=== PATIENT | female | born 1940 | race Caucasian/White ===

== ENCOUNTER 2016-10-24 17:41 | Inpatient (IN) | payer MEDICARE, OTHER ==
[~2016-10-24] VITALS: Ht 170.2 cm; Wt 73.2 kg
[2016-10-24] MEDS ORDERED: ASPIRIN 81 MG TABLET CHEW ONE (18:24)
[2016-10-24] MEDS ORDERED: NITROGLYCERIN SINGLE TAB 0.4 MG SL ONE (18:24)
[2016-10-24] MEDS ORDERED: DILTIAZEM 5 MG/ML, 5ML ONE (18:24)
[2016-10-24] MEDS ORDERED: SODIUM CHLORIDE FLUSH 10ML SYR IVF ONE (18:30)
[2016-10-24] MEDS ORDERED: DILTIAZEM 5 MG/ML, 5ML IV ONE (18:30)
[2016-10-24] MEDS ORDERED: PLEASE ENTER ALLERGIES MC SCH ×4 (18:30→18:39)
[2016-10-24] MEDS ORDERED: PLEASE ENTER HEIGHT AND WEIGHT MC SCH (18:30)
[2016-10-24] MEDS ORDERED: SODIUM CHLORIDE 0.9% 1,000ML IVBOLUS ONE (18:30)
[2016-10-24] MEDS: NITROGLYCERIN 0.4 MG BOTTLE (25 TABS) SL PRN ×3 (18:30→18:46)
[2016-10-24] MEDS ORDERED: ASPIRIN 81 MG TABLET CHEW PO ONE (18:30)
[2016-10-24] MEDS ORDERED: DILTIAZEM 125 MG in DEXTROSE 5% 100 ML IV SCH (18:31)
[2016-10-24 19:22] LABS: ASPARTATE AMINO TRANSFERASE 24 U/L (15-37); BLOOD UREA NITROGEN 19 mg/dL (7-18)
[2016-10-24 19:27] LABS: IS PT STATUS REG ER OR PRE ER? YES
[2016-10-24] MEDS ORDERED: HYDR-3240 PO (20:00)
[2016-10-24] MEDS ORDERED: DILT30TA33 PO (20:00)
[2016-10-24] MEDS ORDERED: LISI10TA PO (20:00)
[2016-10-24] MEDS ORDERED: TEMA7.5C PO (20:00)
[2016-10-24] MEDS ORDERED: ATOR80TA75 PO (20:00)
[2016-10-24] MEDS ORDERED: LISI-167 PO (20:00)
[2016-10-24] MEDS ORDERED: OMNIPAQUE 350 MG/ML, 100ML BOTTLE ONE (20:31)
[2016-10-24] MEDS ORDERED: FUROSEMIDE 20 MG/2 ML IV ONE (21:30)
[2016-10-24] MEDS ORDERED: NITROGLYCERIN 0.4 MG BOTTLE (25 TABS) SL PRN (22:00)
[2016-10-24] MEDS ORDERED: NITROGLYCERIN 0.4 MG/SPRAY SL PRN (22:00)
[2016-10-24] MEDS ORDERED: DILTIAZEM 125 MG in SODIUM CHLORIDE 0.9% 100 ML IV SCH (22:00)
[2016-10-24] MEDS ORDERED: MAGNESIUM SULFATE PMX 2GM/50ML 50 ML IV ONE (22:00)
[2016-10-24] MEDS ORDERED: BISACODYL 10 MG SUPP PR PRN (22:00)
[2016-10-24] MEDS ORDERED: DOCUSATE 100 MG CAPSULE PO PRN (22:00)
[2016-10-24] MEDS ORDERED: HYDROcodone/APAP 5/325 TABLET PO PRN (22:00)
[2016-10-24] MEDS ORDERED: TEMAZEPAM 15 MG CAPSULE PO PRN (22:00)
[2016-10-24] MEDS ORDERED: POLYETHYLENE GLYCOL 17 GM PACKET PO PRN (22:00)
[2016-10-24] MEDS ORDERED: POTASSIUM CHLORIDE 20 MEQ TAB.ER.PRT PO ONE (22:00)
[2016-10-24] MEDS ORDERED: ACETAMINOPHEN 325 MG TABLET PO PRN (22:00)
[2016-10-24 22:55] VITALS: BP 139/87
[2016-10-24] MEDS ORDERED: HEPARIN 25,000 UNITS/500ML PMX 500 ML IV PRN ×2 (23:00→23:45)
[2016-10-24] MEDS ORDERED: HEPARIN 5,000 UNITS/ML, 1ML IV ONE ×2 (23:00→23:45)
[2016-10-24] MEDS ORDERED: HEPARIN 5,000 UNITS/ML, 1ML IV PRN ×2 (23:00→23:45)
[2016-10-24] MEDS ORDERED: TEMAZEPAM MC SCH (23:00)
[2016-10-24] MEDS ORDERED: TEMAZEPAM 15 MG CAPSULE ONE (23:13)
[2016-10-24] MEDS: TEMAZEPAM 15 MG CAPSULE PO PRN (23:34)
[2016-10-25 01:12] VITALS: BP 112/77
[2016-10-25] MEDS ORDERED: ALBUTEROL SULFATE 2.5 MG/3 ML NPPB PRN (01:30)
[2016-10-25 06:37] LABS: BLOOD UREA NITROGEN 16 mg/dL (7-18)
[2016-10-25 06:45] LABS: IS PT STATUS REG ER OR PRE ER? NO
[2016-10-25 06:46] LABS: ASPARTATE AMINO TRANSFERASE 21 U/L (15-37)
[2016-10-25 06:55] VITALS: BP 141/89
[2016-10-25] MEDS: LISINOPRIL 10 MG TABLET PO SCH (08:15)
[2016-10-25] MEDS ORDERED: REGADENOSON 0.4 MG/5 ML SYRINGE ONE (09:26)
[2016-10-25] MEDS: FUROSEMIDE 20 MG/2 ML IV SCH ×2 (12:05→17:59)
[2016-10-25 12:33] LABS: IS PT STATUS REG ER OR PRE ER? NO
[2016-10-25 14:13] VITALS: BP 128/78
[2016-10-25 17:59] VITALS: BP 134/87
[2016-10-25] MEDS: CARVEDILOL 12.5 MG TABLET PO SCH (18:02)
[2016-10-25 19:28] VITALS: BP 103/68
[2016-10-25] MEDS: TEMAZEPAM 15 MG CAPSULE PO PRN (20:40)
[2016-10-25] MEDS ORDERED: ATORVASTATIN 80 MG TABLET PO SCH (21:00)
[2016-10-25] MEDS ORDERED: ATORVASTATIN 20 MG TABLET PO SCH (21:00)
[2016-10-25] MEDS ORDERED: FAMOTIDINE 20 MG TABLET PO SCH (21:00)
[2016-10-26 02:00] VITALS: BP 91/55
[2016-10-26 05:09] LABS: ASPARTATE AMINO TRANSFERASE 18 U/L (15-37); BLOOD UREA NITROGEN 24 mg/dL (7-18)
[2016-10-26] MEDS: CARVEDILOL 12.5 MG TABLET PO SCH (05:55)
[2016-10-26] MEDS ORDERED: ASPIRIN 325 MG TABLET PO SCH (06:00)
[2016-10-26 07:45] VITALS: BP 112/67
[2016-10-26] MEDS: FUROSEMIDE 20 MG/2 ML IV SCH (07:45)
[2016-10-26] MEDS: LISINOPRIL 10 MG TABLET PO SCH (07:51)
[2016-10-26] MEDS ORDERED: ASPI-496 PO (07:56)
[2016-10-26] MEDS ORDERED: FURO-93 PO (09:49)
[2016-10-26] MEDS ORDERED: FAMO20TA7 PO (09:49)
[2016-10-26] MEDS ORDERED: CARV6.2512 PO (09:49)
[2016-10-26] MEDS ORDERED: POTASSIUM CHLORIDE 20 MEQ TAB.ER.PRT ONE (11:05)
[2016-10-26 11:47] VITALS: BP 108/75
[2016-10-26] MEDS ORDERED: POTASSIUM CHLORIDE 20 MEQ TAB.ER.PRT PO SCH (17:00)
[2016-10-26] MEDS ORDERED: CARVEDILOL 6.25 MG TABLET PO SCH (18:00)
== END 2016-10-26 12:00 | disposition home or self-care (01) | DRG 308 ==
LOC: ED 18:38 → EDIP 21:02 → 5SO 22:36 → DCLOUNGE 10-26 11:58
PROVIDERS: ADMIT Internal Medicine; ATTEND Internal Medicine
DX: I48.0 Paroxysmal atrial fibrillation (principal); I50.43 Acute on chronic combined systolic (congestive) and diastolic (congestive) heart failure; D68.69 Other thrombophilia; I25.119 Atherosclerotic heart disease of native coronary artery with unspecified angina pectoris; I11.0 Hypertensive heart disease with heart failure; I25.5 Ischemic cardiomyopathy; I45.81 Long QT syndrome; E78.5 Hyperlipidemia, unspecified; I08.1 Rheumatic disorders of both mitral and tricuspid valves; I25.2 Old myocardial infarction; Z87.891 Personal history of nicotine dependence; Z95.5 Presence of coronary angioplasty implant and graft; Z88.0 Allergy status to penicillin; K76.1 Chronic passive congestion of liver
CPT/HCPCS: 36415; 71010; 71275; 76700; 78452; 80053; 80061; 83735; 83880; 84443; 84484; 85025; 85379; 85520; 85610; 85730; 93005; 93017; 93306; 93970; 96365; 96366; 96376; J1644; J2785; Q9967; A9502; C9898; J1940; J3475; J7030